=== PATIENT | male | born 1945 | race Caucasian/White ===

== ENCOUNTER 2016-10-11 09:18 | Outpatient (CLI) | payer OTHER ==
--- NOTE | 2016-10-11 15:39 | DIAGNOSTIC IMAGING REPORT ---
PROCEDURE: NM HEPATOBILIARY IMAGING INDICATION: ABD PAIN;GERD;HTN TECHNIQUE: 8 mCi of technetium-99m Choletec was injected intravenously and images were acquired over a one hour time interval. Fatty milk shake was given to the patient with calculation of gallbladder ejection fraction. COMPARISON: CT of the/pelvis 09/25/2015 and hepatobiliary scan 12/24/2013. FINDINGS: Homogeneous radiotracer uptake throughout the liver. Gallbladder visualizes at 13 minutes. Following administration of fatty shake meal, small bowel activity was noted. Gallbladder ejection fraction was 2% at 20 minutes, 24% at 40 minutes and 29% at 60 minutes (previously 36% at 60 minutes). IMPRESSION: 1. Pain since cystic and common bile ducts 2. Decreased gallbladder ejection fraction (29%) suggestive of dyskinesia, with slight worsening since the prior exam.
[2016-10-29] MEDS ORDERED: ATORVASTATIN CA20 MG PO (15:31)
[2016-10-29] MEDS ORDERED: LISINOPRIL10 MG PO (15:31)
[2016-12-01] MEDS ORDERED: LISINOPRIL10 MG PO (15:27)
[2016-12-01] MEDS ORDERED: ASPIRIN81 M1 PO (15:27)
[2016-12-01] MEDS ORDERED: PROTONIX40 MG PO (15:34)
[2016-12-01] MEDS ORDERED: REGLAN10 MG PO (15:36)
[2016-12-01] MEDS ORDERED: ATORVASTATIN CA40 MG PO (15:37)
[2016-12-01] MEDS ORDERED: PLAVIX75 MG PO (15:37)
[2016-12-01] MEDS ORDERED: AMLODIPINE BES2.5 MG PO (15:38)
== END 2016-10-11 23:00 ==
LOC: NM SRH 09:18
DX: R10.9 Unspecified abdominal pain (principal); K21.9 Gastro-esophageal reflux disease without esophagitis

== ENCOUNTER 2016-10-28 11:10 | Outpatient (CLI) | payer OTHER ==
--- NOTE | 2016-10-28 13:12 | DIAGNOSTIC IMAGING REPORT ---
PROCEDURE: XR UPPER GI WITH AIR INDICATION: Heartburn. Intermittent abdominal pain after eating. TECHNIQUE: Double contrast study. Fluoroscopy time, 3.4 minutes; 2239.30 mGy. 44 fluoroscopic images (including cinefluoroscopy). COMPARISON: Comparison is made to upper GI and small bowel series (10/27/2015) FINDINGS: Small sliding hiatal hernia. Marked spontaneous gastroesophageal reflux with mild to moderate thickening of the esophageal folds. Stomach appears normal. There is delayed emptying of the duodenal bulb (suggests duodenal spasm). No evidence of ulcer. IMPRESSION: 1. Small sliding hiatal hernia. 2. Worsening in marked spontaneous gastroesophageal reflux with mild to moderate thickening of the esophageal folds (reflux esophagitis). 3. Delayed emptying of the duodenum suggest spasm of the duodenal bulb. However, no ulcers are identified. 4. Findings discussed with the patient. 5. Findings discussed with Dr. Atkinson.
[2016-10-29] MEDS ORDERED: LISINOPRIL10 MG PO (15:31)
[2016-10-29] MEDS ORDERED: ATORVASTATIN CA20 MG PO (15:31)
[2016-12-01] MEDS ORDERED: LISINOPRIL10 MG PO (15:27)
[2016-12-01] MEDS ORDERED: ASPIRIN81 M1 PO (15:27)
[2016-12-01] MEDS ORDERED: PROTONIX40 MG PO (15:34)
[2016-12-01] MEDS ORDERED: REGLAN10 MG PO (15:36)
[2016-12-01] MEDS ORDERED: PLAVIX75 MG PO (15:37)
[2016-12-01] MEDS ORDERED: ATORVASTATIN CA40 MG PO (15:37)
[2016-12-01] MEDS ORDERED: AMLODIPINE BES2.5 MG PO (15:38)
== END 2016-10-28 23:00 ==
LOC: XR SRH 11:10
DX: K21.0 Gastro-esophageal reflux disease with esophagitis (principal); K44.9 Diaphragmatic hernia without obstruction or gangrene

== ENCOUNTER 2016-12-06 08:39 | Day surgery (SDC) | payer OTHER ==
[~2016-12-06] VITALS: Ht 170.2 cm; Wt 78.9 kg
[~2016-12-06 08:39] MED LIST: AMLODIPINE BES2.5 MG PO; ASPIRIN81 M1 PO; ATORVASTATIN CA20 MG PO; ATORVASTATIN CA40 MG PO; LISINOPRIL10 MG PO; PLAVIX75 MG PO; PROTONIX40 MG PO; REGLAN10 MG PO
--- NOTE | 2016-12-06 09:53 | Provider's Discharge Care Plan ---
Problem, Goal, Plan Problem List 1. S/P EGD Goals: Screening Instructions: Follow up as needed, Take meds as directed
--- NOTE | 2016-12-06 09:53 | Provider's Discharge Care Plan ---
Problem, Goal, Plan Problem List 1. S/P EGD Goals: Screening Instructions: Follow up as needed, Take meds as directed
--- NOTE | 2016-12-06 10:37 | OPERATIVE REPORT ---
DATE OF SURGERY: 12/06/2016 SURGEON: Christa Atknison III, MD SOCK KNITTING MACHINE OPERATOR: None. PREOPERATIVE DIAGNOSIS: 1. Epigastric abdominal bloating POSTOPERATIVE DIAGNOSIS: 1. Moderate hiatal hernia PROCEDURE PERFORMED: 1. Upper gastrointestinal endoscopy ANESTHESIA: TIVA. Posterior pharynx Cetacaine spray. INDICATIONS: The patient is a 71-year-old male with longstanding history of epigastric discomfort. Numerous CAT scans in the past have only shown diverticulosis. Upper GI endoscopies, biopsies of stomach and esophagus were essentially normal. The patient does have a history of peptic ulcer disease. Upper GI series, small-bowel follow- through in 2016 showed moderate esophageal reflux and delayed emptying of the stomach. HIDA scans, normal. SURGICAL FINDINGS: Normal-appearing duodenum and duodenal bulb. No evidence of gastric outlet obstruction. The gastric mucosal pattern appeared grossly normal. The patient was noted to have a moderate size hiatal hernia. The EG junction was approximately 39 cm from dental incisors. The esophagus appeared grossly normal. SURGICAL TECHNIQUE: The patient was brought to the operating room and placed in the left lateral decubitus position, where he was administered TIVA and monitored closely by anesthesia. After proper anesthesia had taken effect, the posterior pharynx was sprayed with Cetacaine spray, after which an Olympus fiberoptic video flexible upper GI endoscope was passed down the patient's posterior pharynx. Esophagus intubated under direct visualization. The scope passed easily down the esophagus, through the EG junction, which was approximately 39 cm from dental incisors, through the hiatal hernia, into the gastric lumen and eventually into the second and third portion of the duodenum. On withdrawing the scope, the aforementioned findings were noted. The scope was withdrawn into the gastric lumen and retroflexed, with a good view of the cardia, fundus, and EG junction from below, as well as the greater and lesser curvature. No biopsies were obtained as per the recommendations of his shank maker. The patient is presently on Plavix. The scope was withdrawn through the EG junction. The remaining esophagus appeared grossly normal. The scope was completely withdrawn. The patient tolerated the procedure well and was transferred to the recovery room in stable condition. There were no intraoperative or anesthetic complications.
--- NOTE | 2016-12-06 10:37 | OPERATIVE REPORT ---
DATE OF SURGERY: 12/06/2016 SURGEON: Christa Atkinson III, MD TILE DITCHER: None. PREOPERATIVE DIAGNOSIS: 1. Epigastric abdominal bloating POSTOPERATIVE DIAGNOSIS: 1. Moderate hiatal hernia PROCEDURE PERFORMED: 1. Upper gastrointestinal endoscopy ANESTHESIA: TIVA. Posterior pharynx Cetacaine spray. INDICATIONS: The patient is a 71-year-old male with longstanding history of epigastric discomfort. Numerous CAT scans in the past have only shown diverticulosis. Upper GI endoscopies, biopsies of stomach and esophagus were essentially normal. The patient does have a history of peptic ulcer disease. Upper GI series, small-bowel follow- through in 2016 showed moderate esophageal reflux and delayed emptying of the stomach. HIDA scans, normal. SURGICAL FINDINGS: Normal-appearing duodenum and duodenal bulb. No evidence of gastric outlet obstruction. The gastric mucosal pattern appeared grossly normal. The patient was noted to have a moderate size hiatal hernia. The EG junction was approximately 39 cm from dental incisors. The esophagus appeared grossly normal. SURGICAL TECHNIQUE: The patient was brought to the operating room and placed in the left lateral decubitus position, where he was administered TIVA and monitored closely by anesthesia. After proper anesthesia had taken effect, the posterior pharynx was sprayed with Cetacaine spray, after which an Olympus fiberoptic video flexible upper GI endoscope was passed down the patient's posterior pharynx. Esophagus intubated under direct visualization. The scope passed easily down the esophagus, through the EG junction, which was approximately 39 cm from dental incisors, through the hiatal hernia, into the gastric lumen and eventually into the second and third portion of the duodenum. On withdrawing the scope, the aforementioned findings were noted. The scope was withdrawn into the gastric lumen and retroflexed, with a good view of the cardia, fundus, and EG junction from below, as well as the greater and lesser curvature. No biopsies were obtained as per the recommendations of his software firmware engineer. The patient is presently on Plavix. The scope was withdrawn through the EG junction. The remaining esophagus appeared grossly normal. The scope was completely withdrawn. The patient tolerated the procedure well and was transferred to the recovery room in stable condition. There were no intraoperative or anesthetic complications.
[2016-12-06 11:16] VITALS: BP 106/66
== END 2016-12-06 11:30 | disposition home or self-care (01) ==
LOC: OR SRH 08:39 → SCU SRH 08:44 → OR SRH 10:30
PROVIDERS: Specialist
PROC: 0DJ08ZZ Inspection of Upper Intestinal Tract, Via Natural or Artificial Opening Endoscopic (ICD-10-PCS; principal; 2016-12-06 10:30)
DX: K44.9 Diaphragmatic hernia without obstruction or gangrene (principal); I10 Essential (primary) hypertension; I25.2 Old myocardial infarction
CPT/HCPCS: 29229; 29240; 50004; 60001; 83526